=== PATIENT | female | born 1995 | race Caucasian/White ===

== ENCOUNTER 2016-10-03 16:38 | Emergency (ER) | payer OTHER ==
[~2016-10-03] VITALS: Ht 157.5 cm; Wt 83.0 kg
[~2016-10-03 16:38] MED LIST: ADVIL200 MG PO; AFRIN,GENASAL D15 ML BOTH NARES; Bactrim,Septra DS 80 PO; Flagyl PO; METHERGINE0.2 MG PO; MOTRIN600 MG PO; NO MEDS; NOHOMEMEDS; NORCO 5/3251 TABLET PO; PERCOCET 5/31 TABLET PO; TRAMADOL HCL50 MG PO; Vicodin,Lortab 5/500 PO
[2016-10-03 16:49] VITALS: BP 132/96
[2016-10-03] MEDS ORDERED: ZITHROMAX Z-PA250 MG PO (17:36)
== END 2016-10-03 17:58 | disposition home or self-care (01) ==
LOC: EME 16:38
DX: J40 Bronchitis, not specified as acute or chronic (principal); J02.9 Acute pharyngitis, unspecified; F17.200 Nicotine dependence, unspecified, uncomplicated
CPT/HCPCS: 99281; 99283

== ENCOUNTER 2016-11-02 21:05 | Emergency (ER) | payer OTHER ==
[~2016-11-02] VITALS: Ht 157.5 cm; Wt 84.0 kg
[~2016-11-02 21:05] MED LIST changes: +ZITHROMAX Z-PA250 MG PO
[2016-11-02 23:23] LABS: HEMATOCRIT 39.1 % (36.0-46.0); MCHC 34.8 G/DL (30.0-36.0); MCV 86.3 FL (83-99); MEAN PLAT.VOLUME 10.1 uM^3 (9.5-12.4); PLATELET COUNT 322 K/uL (156-360); RBC DIS.WIDTH-CV 12.7 % (11.8-14.6); RED BLOOD COUNT 4.53 M/uL (3.80-5.20); WHITE BLOOD COUNT 12.7 K/uL (4.1-10.2)
[2016-11-02 23:34] LABS: CHLORIDE 108 mEq/L (99-109); SODIUM 138 mEq/L (136-147)
[2016-11-02 23:36] LABS: GLUCOSE 98 mg/dL (70-99)
[2016-11-02 23:37] LABS: ANION GAP 10 MEQ/L (2-14)
[2016-11-02 23:39] LABS: GFR ESTIMATE (CALCULATED) > 59 mL/min/
[2016-11-02 23:40] LABS: UREA NITROGEN (BUN) 9 mg/dL (9-23)
[2016-11-02 23:45] LABS: TROP-I INTERPRETATION NEGATIVE; TROPONIN-I < 0.01 ng/mL (0.0-0.30)
[2016-11-02] MEDS ORDERED: ZANTAC150 MG PO (23:57)
[2016-11-03 00:26] VITALS: BP 135/87
== END 2016-11-03 00:28 | disposition home or self-care (01) ==
LOC: EME 21:05
DX: K21.9 Gastro-esophageal reflux disease without esophagitis (principal); M26.609 Unspecified temporomandibular joint disorder, unspecified side; J45.909 Unspecified asthma, uncomplicated; F17.200 Nicotine dependence, unspecified, uncomplicated
CPT/HCPCS: 71020; 80048; 84484; 85027; 93005; 99281; 99283

== ENCOUNTER 2016-11-28 12:37 | Emergency (ER) | payer OTHER ==
[~2016-11-28] VITALS: Ht 157.5 cm; Wt 82.8 kg
[~2016-11-28 12:37] MED LIST changes: +ZANTAC150 MG PO
[2016-11-28 13:32] LABS: HEMATOCRIT 40.3 % (36.0-46.0); MCH 29.7 PG (29.0-34.0); MCV 87.4 FL (83-99); PLATELET COUNT 328 K/uL (156-360); RBC DIS.WIDTH-CV 13.1 % (11.8-14.6); RBC DIS.WIDTH-SD 41.8 % (39-53); RED BLOOD COUNT 4.61 M/uL (3.80-5.20); WHITE BLOOD COUNT 6.5 K/uL (4.1-10.2)
[2016-11-28 13:40] LABS: ADD MIUA? YES; BILIRUBIN NEGATIVE; BLOOD LARGE; COLOR YELLOW ((YELLOW)); GLUCOSE (STRIP) NEGATIVE; KETONES NEGATIVE; LEUKOCYTES TRACE; NITRITE POSITIVE; PROTEIN (STRIP) 30; SPECIFIC GRAVITY 1.021 (1.000-1.030); UROBILINOGEN 0.2 MG/DL (0.2-1.0)
[2016-11-28 13:41] LABS: CHLORIDE 107 mEq/L (99-109); POTASSIUM 3.7 mEq/L (3.7-5.4); SODIUM 140 mEq/L (136-147)
[2016-11-28 13:43] LABS: GLUCOSE 109 mg/dL (70-99)
[2016-11-28 13:45] LABS: ANION GAP 8 MEQ/L (2-14); TOTAL BILIRUBIN 0.4 mg/dL (0.0-1.0)
[2016-11-28 13:47] LABS: ALKALINE PHOSPHATASE 60 IU/L (3-129); GFR ESTIMATE (CALCULATED) > 59 mL/min/
[2016-11-28 13:48] LABS: UREA NITROGEN (BUN) 12 mg/dL (9-23)
[2016-11-28 13:50] LABS: LIPASE 11 U/L (1.0-51.0)
[2016-11-28 13:56] LABS: QUANTITATIVE HCG < 4.0 MIU/ML
[2016-11-28 14:01] LABS: BACTERIA 2+ /HPF; EPITHELIAL CELLS NONE SEEN /HPF; MUCUS 1+ /LPF; RED BLOOD CELLS TNTC /HPF (0-5); UCUL ADDED? YES; WHITE BLOOD CELLS 15-20 /HPF (0-5)
[2016-11-28] MEDS ORDERED: MACROBID100 MG PO (14:15)
[2016-11-28 15:29] VITALS: BP 118/75
== END 2016-11-28 15:31 | disposition home or self-care (01) ==
LOC: EME 12:37
DX: N39.0 Urinary tract infection, site not specified (principal); F17.200 Nicotine dependence, unspecified, uncomplicated
CPT/HCPCS: 80053; 81003; 83690; 84702; 85027; 87077; 87086; 87186; 99281; 99284

== ENCOUNTER 2016-11-30 14:58 | Emergency (ER) | payer OTHER ==
[~2016-11-30] VITALS: Ht 157.5 cm; Wt 83.4 kg
[~2016-11-30 14:58] MED LIST changes: +MACROBID100 MG PO
[2016-11-30] MEDS ORDERED: INDOCIN50 MG PO (15:42)
[2016-11-30] MEDS ORDERED: TRAMADOL HCL50 MG PO (15:42)
[2016-11-30 15:59] VITALS: BP 127/79
== END 2016-11-30 16:04 | disposition home or self-care (01) ==
LOC: EME 14:58
DX: S16.1XXA Strain of muscle, fascia and tendon at neck level, initial encounter (principal); M26.603 Bilateral temporomandibular joint disorder, unspecified; K08.409 Partial loss of teeth, unspecified cause, unspecified class; F17.200 Nicotine dependence, unspecified, uncomplicated
CPT/HCPCS: 99281; 99284

== ENCOUNTER 2016-12-05 02:39 | Emergency (ER) | payer OTHER ==
[~2016-12-05] VITALS: Ht 157.5 cm; Wt 82.6 kg
[~2016-12-05 02:39] MED LIST changes: +INDOCIN50 MG PO
[2016-12-05 02:43] VITALS: BP 137/93
[2016-12-05 03:57] LABS: CHLORIDE 106 mEq/L (99-109); POTASSIUM 3.8 mEq/L (3.7-5.4); SODIUM 137 mEq/L (136-147)
[2016-12-05 03:57] LABS: HEMATOCRIT 39.5 % (36.0-46.0); MCH 29.7 PG (29.0-34.0); MCHC 34.2 G/DL (30.0-36.0); MEAN PLAT.VOLUME 10.1 uM^3 (9.5-12.4); PLATELET COUNT 320 K/uL (156-360); RBC DIS.WIDTH-SD 41.5 % (39-53); RED BLOOD COUNT 4.54 M/uL (3.80-5.20); WHITE BLOOD COUNT 9.2 K/uL (4.1-10.2)
[2016-12-05 03:59] LABS: GLUCOSE 93 mg/dL (70-99)
[2016-12-05 04:01] LABS: ANION GAP 9 MEQ/L (2-14)
[2016-12-05 04:03] LABS: GFR ESTIMATE (CALCULATED) > 59 mL/min/
[2016-12-05 04:04] LABS: UREA NITROGEN (BUN) 10 mg/dL (9-23)
[2016-12-05 04:07] LABS: TROP-I INTERPRETATION NEGATIVE; TROPONIN-I < 0.01 ng/mL (0.0-0.30)
== END 2016-12-05 04:44 | disposition home or self-care (01) ==
LOC: EME 02:39 → EXP 02:39
DX: F41.9 Anxiety disorder, unspecified (principal); R00.2 Palpitations; F17.200 Nicotine dependence, unspecified, uncomplicated
CPT/HCPCS: 71020; 80048; 84484; 85027; 93005; 99281; 99283

== ENCOUNTER 2017-01-08 23:43 | Emergency (ER) | payer OTHER ==
[~2017-01-08] VITALS: Ht 160 cm; Wt 88.1 kg
[2017-01-09 01:27] LABS: BASOPHIL COUNT 0.1 K/uL (0-0.1); EOSINOPHIL (%) 1.7 % (0-5); EOSINOPHIL COUNT 0.2 K/uL (0-0.3); HEMATOCRIT 38.4 % (36.0-46.0); IMMATURE GRANULOCYTE (%) 0.6 % (0.0-0.7); IMMATURE GRANULOCYTE COUNT 0.1 K/uL; INSTRUMENT ABS NEUTROPHIL CT 7.8 K/uL; MCH 29.7 PG (29.0-34.0); MCHC 33.6 G/DL (30.0-36.0); MCV 88.3 FL (83-99); MEAN PLAT.VOLUME 10.4 uM^3 (9.5-12.4); MONOCYTE (%) 7.4 % (3-12); MONOCYTE COUNT 0.9 K/uL (0-0.8); NEUTROPHIL (%) 64.7 % (45-76); NEUTROPHIL COUNT 7.8 K/uL (1.8-6.4); PLATELET COUNT 307 K/uL (156-360); RBC DIS.WIDTH-CV 13.2 % (11.8-14.6); RBC DIS.WIDTH-SD 42.5 % (39-53); RED BLOOD COUNT 4.35 M/uL (3.80-5.20)
[2017-01-09 01:33] LABS: ADD MIUA? NO; BILIRUBIN NEGATIVE; BLOOD NEGATIVE; COLOR YELLOW ((YELLOW)); GLUCOSE (STRIP) NEGATIVE; KETONES NEGATIVE; LEUKOCYTES NEGATIVE; NITRITE NEGATIVE; PROTEIN (STRIP) NEGATIVE; SPECIFIC GRAVITY 1.019 (1.000-1.030); UCUL ADDED? NO; UROBILINOGEN 0.2 MG/DL (0.2-1.0)
[2017-01-09 01:41] LABS: CHLORIDE 103 mEq/L (99-109); POTASSIUM 3.5 mEq/L (3.7-5.4); SODIUM 135 mEq/L (136-147)
[2017-01-09 01:43] LABS: GLUCOSE 121 mg/dL (70-99)
[2017-01-09 01:44] LABS: ANION GAP 9 MEQ/L (2-14)
[2017-01-09 01:47] LABS: GFR ESTIMATE (CALCULATED) > 59 mL/min/
[2017-01-09 01:48] LABS: UREA NITROGEN (BUN) 14 mg/dL (9-23)
[2017-01-09 01:49] LABS: LIPASE 11 U/L (1.0-51.0)
[2017-01-09 01:56] LABS: QUANTITATIVE HCG < 4.0 MIU/ML
[2017-01-09] MEDS ORDERED: MOTRIN800 MG PO (02:56)
[2017-01-09 02:59] VITALS: BP 147/81
== END 2017-01-09 03:09 | disposition home or self-care (01) ==
LOC: EME 23:43
PROVIDERS: Emergency Medicine
DX: K59.00 Constipation, unspecified (principal); S39.012A Strain of muscle, fascia and tendon of lower back, initial encounter; Z87.440 Personal history of urinary (tract) infections; F17.200 Nicotine dependence, unspecified, uncomplicated
CPT/HCPCS: 74176; 80048; 81003; 83690; 84702; 85025; 99281; 99284; J1885; J7030

== ENCOUNTER 2017-02-03 19:07 | Emergency (ER) | payer OTHER ==
[~2017-02-03] VITALS: Ht 157.5 cm; Wt 87.2 kg
[~2017-02-03 19:07] MED LIST changes: +MOTRIN800 MG PO
[2017-02-03] MEDS ORDERED: ATARAX,VISTARIL25 MG PO (22:24)
[2017-02-03] MEDS ORDERED: PREDNISONE20 MG PO (22:24)
[2017-02-03 22:40] VITALS: BP 147/79
== END 2017-02-03 22:41 | disposition home or self-care (01) ==
LOC: EME 19:07
DX: K13.0 Diseases of lips (principal); L25.9 Unspecified contact dermatitis, unspecified cause; Z87.891 Personal history of nicotine dependence
CPT/HCPCS: 99281; 99283; J7512

== ENCOUNTER 2017-07-17 14:20 | Emergency (ER) | payer OTHER ==
[~2017-07-17] VITALS: Ht 157.5 cm; Wt 92.5 kg
[~2017-07-17 14:20] MED LIST changes: +ATARAX,VISTARIL25 MG PO; +PREDNISONE20 MG PO
[2017-07-17 14:26] VITALS: BP 146/87
[2017-07-17] MEDS ORDERED: PRENATAL GUMMI1 EACH PO (15:40)
[2017-07-17] MEDS ORDERED: ELIMITE 5% CREA60 GM TP (15:59)
[2017-07-17] MEDS ORDERED: FLONASE16 G1 BOTH NARES (15:59)
== END 2017-07-17 16:52 | disposition home or self-care (01) ==
LOC: EME 14:20
DX: H65.92 Unspecified nonsuppurative otitis media, left ear (principal); B86 Scabies
CPT/HCPCS: 99281; 99284

== ENCOUNTER 2017-08-18 22:01 | Emergency (ER) | payer OTHER ==
[~2017-08-18] VITALS: Ht 157.5 cm; Wt 93.4 kg
[~2017-08-18 22:01] MED LIST changes: +ELIMITE 5% CREA60 GM TP; +FLONASE16 G1 BOTH NARES; +PRENATAL GUMMI1 EACH PO
[2017-08-18 22:23] VITALS: BP 118/76
[2017-08-18 23:53] LABS: HEMATOCRIT 40.5 % (36.0-46.0); HEMOGLOBIN 14.1 G/DL (11.9-15.5); MCHC 34.8 G/DL (30.0-36.0); MCV 86.2 FL (83-99); PLATELET COUNT 326 K/uL (156-360); RBC DIS.WIDTH-CV 12.6 % (11.8-14.6); RBC DIS.WIDTH-SD 39.7 % (39-53); WHITE BLOOD COUNT 12.6 K/uL (4.1-10.2)
[2017-08-19 00:15] LABS: CHLORIDE 106 mEq/L (99-109); POTASSIUM 3.8 mEq/L (3.7-5.4); SODIUM 139 mEq/L (136-147); TROP-I INTERPRETATION NEGATIVE; TROPONIN-I < 0.01 ng/mL (0.0-0.30)
[2017-08-19 00:17] LABS: GLUCOSE 156 mg/dL (70-99)
[2017-08-19 00:21] LABS: CREATININE 0.7 mg/dL (0.6-1.3); GFR ESTIMATE (CALCULATED) > 59 mL/min/; UREA NITROGEN (BUN) 11 mg/dL (9-23)
== END 2017-08-19 01:30 | disposition left against medical advice (07) ==
LOC: EME 22:01
DX: R07.9 Chest pain, unspecified (principal); Z53.21 Procedure and treatment not carried out due to patient leaving prior to being seen by health care provider
CPT/HCPCS: 71046; 80048; 84484; 85027; 93005